=== PATIENT | female | born 1970 | race Two or more races ===

== ENCOUNTER 2017-07-27 21:17 | Emergency (ER) | payer BC ==
[2017-07-27 21:58] VITALS: BP 111/75; PULSE 77; RESP 18; TEMP 97.5; O2SAT 98
[2017-07-27 22:16] LABS: HCG,QUALITATIVE URINE NEGATIVE (NEGATIVE)
[2017-07-27 22:19] LABS: SQUAMOUS EPITHIAL 1 /hpf (0-5); URINE BACTERIA FEW (<OCC); URINE BILIRUBIN NEGATIVE (NEGATIVE); URINE CLARITY Hazy (Clear); URINE COLOR Yellow (YELLOW); URINE GLUCOSE (UA) NORMAL (Normal); URINE LEUKOCYTE ESTERASE 3+ Leu/uL (Negative); URINE NITRATE NEGATIVE (NEGATIVE); URINE PROTEIN NEGATIVE (NEGATIVE); URINE UROBILINOGEN NORMAL mg/dL (0.2-1.0); WBC CLUMPS MANY /hpf
[2017-07-27 22:20] LABS: URINE BLOOD 2+ (NEGATIVE)
--- NOTE | 2017-07-27 22:42 | C.PDOC ---
History Of Present Illness 46 year old female presents to the ER with a complaint of dysuria and frequency since yesterday. Patient has a Hx of UTIs, last onset was 1 year ago. Denies abdominal pain, vomiting, or fever. Time Seen by Provider: 07/27/17 21:59 Chief Complaint (Nursing): Female Genitourinary History Per: Patient History/Exam Limitations: no limitations Onset/Duration Of Symptoms: Days Current Symptoms Are (Timing): Still Present Quality Of Discomfort: Unable To Describe Associated Symptoms: Urinary Symptoms. denies: Fever, Chills, Vomiting Alleviating Factors: None Recent travel outside of the [place]: No Abnormal Vaginal Bleeding: No Past Medical History Reviewed: Historical Data, Nursing Documentation, Vital Signs Vital Signs: Last Vital Signs Temp 97.5 F L 07/27/17 21:53 Pulse 77 07/27/17 21:53 Resp 18 07/27/17 21:53 BP 111/75 07/27/17 21:53 Pulse Ox 98 07/28/17 00:42 Family History: States: Unknown Family Hx - Social History Hx Tobacco Use: No Hx Alcohol Use: No Hx Substance Use: No - Immunization History Hx Tetanus Toxoid Vaccination: No Hx Influenza Vaccination: No Hx Pneumococcal Vaccination: No Review Of Systems Constitutional: Negative for: Fever, Chills Gastrointestinal: Negative for: Vomiting, Abdominal Pain Genitourinary: Positive for: Dysuria, Frequency Physical Exam - Physical Exam Appears: Non-toxic, No Acute Distress Skin: Normal Color, Warm, Dry Head: Atraumatic, Normacephalic Eye(s): bilateral: Normal Inspection Gastrointestinal/Abdominal: Soft, No Tenderness Back: No CVA Tenderness Neurological/Psych: Oriented x3, Normal Speech ED Course And Treatment O2 Sat by Pulse Oximetry: 98 (Room air) Pulse Ox Interpretation: Normal Progress Note: Urinalysis ordered, results were indicative of UTI. Patient started on macrobid and pyridium and instructed to follow up with PMD for further evaluation or return to the ER if symptoms worsen. Disposition Counseled Patient/Family Regarding: Diagnosis, Need For Followup, Rx Given - Disposition Referrals: Peterson Banuelos MD [Staff Provider] - Disposition: HOME/ ROUTINE Disposition Time: 22:39 Condition: STABLE Additional Instructions: Increase PO fluids ( Ghada liquido) Ghada todos las medicina Sigue con pediatra Regresa si peor Prescriptions: Nitrofurantoin Macrocrystals [Macrobid] 1 cap PO BID #14 cap Phenazopyridine HCl [Pyridium] 100 mg PO TID #6 tab Instructions: Urinary Tract Infection in Women (ED) Forms: [facility] (Nepali) Print Language: JAMAICAN - Clinical Impression Clinical Impression: Acute urinary tract infection - PA / FOOD SAFETY TECHNICIAN / Resident Statement MD/DO has reviewed & agrees with the documentation as recorded. - Scribe Statement The provider has reviewed the documentation as recorded by the Scribe Cale Schwartz All medical record entries made by the Ferminibleslie were at my direction and personally dictated by me. I have reviewed the chart and agree that the record accurately reflects my personal performance of the history, physical exam, medical decision making, and the department course for this patient. I have also personally directed, reviewed, and agree with the discharge instructions and disposition.
== END 2017-07-27 22:49 | disposition home or self-care (01) ==
LOC: C.ER 21:17
DX: N39.0 Urinary tract infection, site not specified (principal)

== ENCOUNTER 2018-06-18 00:14 | Emergency (ER) | payer BC ==
[2018-06-18 00:27] VITALS: BP 137/86; PULSE 72; RESP 18; TEMP 97.9; O2SAT 99
[2018-06-18 00:40] LABS: SQUAMOUS EPITHIAL < 1 /hpf (0-5); URINE BILIRUBIN NEGATIVE (NEGATIVE); URINE CLARITY Clear (Clear); URINE COLOR Amber (YELLOW); URINE GLUCOSE (UA) NORMAL (Normal); URINE LEUKOCYTE ESTERASE 2+ Leu/uL (Negative); URINE PROTEIN NEGATIVE (NEGATIVE); URINE UROBILINOGEN NORMAL mg/dL (0.2-1.0)
[2018-06-18 00:48] LABS: URINE BLOOD NEGATIVE (NEGATIVE)
[2018-06-18] MEDS ORDERED: Tmp-Smz 800 mg-160 mg DS Tab ONE (01:16)
[2018-06-18] MEDS ORDERED: Tmp-Smz 800 mg-160 mg DS Tab PO STA (01:16)
--- NOTE | 2018-06-18 01:22 | C.PDOC ---
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 Patient states she thought she saw blood in her urine, patient recently took 1 dose of antibiotics and pyridium 2 hours ago. Medications were given to the patient 11 months ago. Patient states she still has pain. Patient denies fever, chills, nausea, vomit, diarrhea, back pain, vaginal bleeding, rash. Time Seen by Provider: 06/18/18 00:34 Chief Complaint (Nursing): Female Genitourinary History Per: Patient History/Exam Limitations: no limitations Onset/Duration Of Symptoms: Hrs (5) Current Symptoms Are (Timing): Still Present Quality Of Discomfort: "Pain" Associated Symptoms: Urinary Symptoms. denies: Nausea, Vomiting, Diarrhea Recent travel outside of the [place]: No Additional History Per: Patient Abnormal Vaginal Bleeding: No Past Medical History Reviewed: Historical Data, Nursing Documentation, Vital Signs Vital Signs: Last Vital Signs Temp 97.9 F 06/18/18 00:25 Pulse 72 06/18/18 00:25 Resp 18 06/18/18 00:25 BP 137/86 06/18/18 00:25 Pulse Ox 99 06/18/18 00:25 - Medical History PMH: No Chronic Diseases Surgical History: No Surg Hx Family History: States: Unknown Family Hx - Social History Hx Tobacco Use: No Hx Alcohol Use: No Hx Substance Use: No - Immunization History Hx Tetanus Toxoid Vaccination: No Hx Influenza Vaccination: No Hx Pneumococcal Vaccination: No Review Of Systems Constitutional: Negative for: Fever, Chills Cardiovascular: Negative for: Chest Pain Respiratory: Negative for: Shortness of Breath Gastrointestinal: Negative for: Nausea, Vomiting, Abdominal Pain Genitourinary: Positive for: Dysuria. Negative for: Hematuria Skin: Negative for: Rash Neurological: Negative for: Weakness, Numbness, Headache Physical Exam - Physical Exam Appears: Non-toxic, No Acute Distress Skin: Normal Color, Warm, Dry Head: Atraumatic, Normacephalic Eye(s): bilateral: Normal Inspection Neck: Normal ROM, Supple Chest: Symmetrical Cardiovascular: Rhythm Regular Respiratory: Normal Breath Sounds, No Rales, No Rhonchi, No Wheezing Gastrointestinal/Abdominal: Soft, No Tenderness, No Guarding, No Rebound Back: No CVA Tenderness Extremity: Normal ROM, No Tenderness, No Swelling Neurological/Psych: Oriented x3, Normal Speech, Normal Cognition Gait: Steady ED Course And Treatment O2 Sat by Pulse Oximetry: 99 (ON RA) Pulse Ox Interpretation: Normal Medical Decision Making Medical Decision Making: Plan: * Bactrim 1 tab PO * Toradol 60 mg IM * Urine culture * UA Disposition - Disposition Referrals: Leonardo Agustin, [Non-Staff] - Disposition: HOME/ ROUTINE Disposition Time: 01:15 Condition: GOOD Additional Instructions: CONSTANTINO CHACKO, thank you for letting us take care of you today. The emergency medical care you received today was directed at your acute symptoms. If you were prescribed any medication, please fill it and take as directed. It may take several days for your symptoms to resolve. Return to the Emergency Department if your symptoms worsen, do not improve, or if you have any other problems. Please contact your doctor or call one of the physicians/clinics you have been referred to that are listed on the Patient Visit Information form that is included in your discharge packet. Bring any paperwork you were given at discharge with you along with any medications you are taking to your follow up visit. Our treatment cannot replace ongoing medical care by a primary care provider outside of the emergency department. Thank you for allowing the [facility] team to be part of your care today. You had a urine culture: It will take several days for the results, if any change in treatment is needed we will contact you. Follow up with your primary care doctor in 2-3 days for re-evaluation and further management. CONSTANTINO CHACKO, [place] por dejarnos cuidar de ti hoy. La atencin mdica de emerg encia que recibi hoy se dirigi a pramod sntomas agudos. Si le recetaron algn medicamento, llnelo y tmelo segn las indicaciones. Los sntomas pueden tardar varios sales en resolverse. Regrese al Departamento de Emergencias si pramod sntomas empeoran, no mejoran o si tiene otros problemas. Comunquese con savage mdico o llame a skinny de los mdicos / clnicas a los que felder sido referido que figuran en el formulario de Informacin de visita al paciente que se incluye en savage paquete de dilan. Lleve todos los documentos que le entregaron al momento del dilan junto con todos los medicamentos que est tomando para savage visita de seguimiento. Nuestro tratamiento no puede reemplazar la atencin mdica continua por parte de un proveedor de atencin primaria fuera del departamento de emergencias. [place] por permitir que el equipo de [facility] [employer] sea parte de savage atencin hoy. Recibi un cultivo de orina: los resultados tardarn varios sales; si es necesario realizar algn cambio en el tratamiento, nos pondremos en contacto con usted. Mandi un seguimiento con savage mdico de atencin primaria en 2-3 sales para maday reevaluacin y manejo adicional. Prescriptions: Ibuprofen [Motrin] 600 mg PO Q6 PRN #20 tab PRN Reason: Pain, Moderate (4-7) Sulfamethoxazole/Trimethoprim [Bactrim DS 800 mg-160 mg] 1 tab PO BID #14 tab Instructions: Urinary Tract Infection, Adult (DC) Forms: Gen Discharge Inst Thai, [employer] (Thai) Print Language: NEPALESE - Clinical Impression Clinical Impression: Acute urinary tract infection - Scribe Statement The provider has reviewed the documentation as recorded by the Scribe Roland Sanders All medical record entries made by the Scribe were at my direction and personally dictated by me. I have reviewed the chart and agree that the record accurately reflects my personal performance of the history, physical exam, medical decision making, and the department course for this patient. I have also personally directed, reviewed, and agree with the discharge instructions and di sposition.
== END 2018-06-18 01:32 | disposition home or self-care (01) ==
LOC: C.ER 00:14
DX: N39.0 Urinary tract infection, site not specified (principal)
CPT/HCPCS: 81001; 87086; 87181; 96372; 99284; J1885